=== PATIENT | male | born 1955 | race Caucasian/White ===

== ENCOUNTER 2023-07-01 03:37 | Emergency (ER) | payer MEDICARE, OTHER, SELFPAY ==
[2023-07-01] VITALS (7 sets, daily range): BP systolic 124–194; BP diastolic 60–109; PULSE 56–99; RESP 17–18; TEMP 36.8; O2SAT 95–99; BMI 21.2
--- NOTE | 2023-07-01 03:55 | ED_ITS ---
HPI - Abdominal Pain <Marisol Asif MD - Last Filed: 07/02/23 01:20> General Chief Complaint: Nausea/Vomiting/Diarrhea Stated Complaint: NVD Time Seen by Provider: 07/01/23 03:41 History of Present Illness HPI narrative: 68-year-old male with history of TBI, peripheral neuropathy, CKD stage 3 presents by private vehicle from home for nausea, vomiting, abdominal pain. Patient's SRIDEVI form reports numerous ER visits at various locations for same complaints. Most recently seen 06/17 at [facility] and 06/18 at [facility] for abdominal-related complaints. Related Data Previous Rx's Medication Instructions Recorded promethazine 25 mg tablet 25 mg PO Q6H PRN nausea and 07/01/23 vomiting #30 tabs Allergies Allergy/AdvReac Type Severity Reaction Status Date / Time droperidol AdvReac Severe Cramping Verified 07/01/23 06:53 of the Muscles sertraline [From Zoloft] AdvReac Verified 07/01/23 04:03 Review of Systems <Marisol Asif MD - Last Filed: 07/02/23 01:20> Review of Systems Narrative: see HPI Exam <Marisol Asif MD - Last Filed: 07/02/23 01:20> Narrative Exam Narrative: Const: Awake, alert, appears chronically unwell, older than stated age Cardiac: regular rate, regular rhythm RESP: unlabored, clear bilaterally, no wheezing GI: Soft, generalized tenderness to deep palpation, no rebound, no guarding Skin: Warm, Dry, intact, no rashes Neuro: AO x3, CN II-XII grossly intact, moves all extremities Initial Vital Signs Initial Vital Signs: Vital Signs Temperature 98.3 F 07/01/23 03:45 Pulse Rate 57 L 07/01/23 03:45 Respiratory Rate 17 07/01/23 03:45 Blood Pressure 137/84 07/01/23 03:45 Pulse Oximetry 95 07/01/23 03:45 Oxygen Delivery Method Room Air 07/01/23 03:45 <Marisol Mcnally DO - Last Filed: 07/01/23 11:11> Initial Vital Signs Initial Vital Signs: Vital Signs Temperature 98.3 F 07/01/23 03:45 Pulse Rate 57 L 07/01/23 03:45 Respiratory Rate 17 07/01/23 03:45 Blood Pressure 137/84 07/01/23 03:45 Pulse Oximetry 95 07/01/23 03:45 Oxygen Delivery Method Room Air 07/01/23 03:45 Course <Marisol Asif MD - Last Filed: 07/02/23 01:20> Orders Ordered: Discontinued Medications Diphenhydramine HCl (Diphenhydramine 50 Mg/Ml Vial) 50 mg IV NOW ONE Stop: 07/01/23 06:34 Last Admin: 07/01/23 06:39 Dose: 50 mg Documented By: Droperidol (Droperidol 5 Mg/2 Ml Vial) 2.5 mg IV NOW ONE Stop: 07/01/23 03:55 Last Admin: 07/01/23 04:02 Dose: 2.5 mg Documented By: ESTRELLA Droperidol (Droperidol 5 Mg/2 Ml Vial) 2.5 mg IV NOW ONE Stop: 07/01/23 06:03 Last Admin: 07/01/23 06:07 Dose: 2.5 mg Documented By: ESTRELLA Sodium Chloride (Normal Saline 0.9%) 1,000 mls @ 1,000 mls/hr IV BOLUS ONE Stop: 07/01/23 04:53 Last Infusion: 07/01/23 05:36 Dose: Infused Documented By: Admin: 07/01/23 04:02 Dose: 1,000 mls/hr Documented By: ESTRELLA Acetaminophen (Ofirmev) 1,000 mg in 100 mls @ 400 mls/hr IV NOW ONE Stop: 07/01/23 04:58 Last Infusion: 07/01/23 05:32 Dose: Infused Documented By: Admin: 07/01/23 04:50 Dose: 400 mls/hr Documented By: ESTRELLA Lorazepam (Lorazepam 0.5 Mg Tablet) 1 mg PO NOW ONE Stop: 07/01/23 07:31 Last Admin: 07/01/23 07:37 Dose: 1 mg Documented By: LAINA Vital Signs Vital signs: Vital Signs - 8 hr 07/01/23 03:45 07/01/23 04:31 07/01/23 04:31 Temperature 98.3 F Pulse Rate 57 L 56 L Respiratory Rate 17 Blood Pressure 137/84 140/94 H Pulse Oximetry 95 97 Oxygen Delivery Method Room Air Room Air 07/01/23 05:01 07/01/23 05:01 07/01/23 06:13 Temperature Pulse Rate 68 93 H Respiratory Rate Blood Pressure 194/109 H Pulse Oximetry 98 97 Oxygen Delivery Method Room Air Room Air 07/01/23 06:14 07/01/23 06:14 07/01/23 06:29 Temperature Pulse Rate 99 H 94 H Respiratory Rate Blood Pressure 169/102 H Pulse Oximetry 98 96 Oxygen Delivery Method Room Air 07/01/23 08:34 Temperature Pulse Rate 65 Respiratory Rate 18 Blood Pressure 124/60 Pulse Oximetry 99 Oxygen Delivery Method Room Air <Marisol Mcnally DO - Last Filed: 07/01/23 11:11> Orders Ordered: Discontinued Medications Diphenhydramine HCl (Diphenhydramine 50 Mg/Ml Vial) 50 mg IV NOW ONE Stop: 07/01/23 06:34 Last Admin: 07/01/23 06:39 Dose: 50 mg Documented By: Droperidol (Droperidol 5 Mg/2 Ml Vial) 2.5 mg IV NOW ONE Stop: 07/01/23 03:55 Last Admin: 07/01/23 04:02 Dose: 2.5 mg Documented By: ESTRELLA Droperidol (Droperidol 5 Mg/2 Ml Vial) 2.5 mg IV NOW ONE Stop: 07/01/23 06:03 Last Admin: 07/01/23 06:07 Dose: 2.5 mg Documented By: ESTRELLA Sodium Chloride (Normal Saline 0.9%) 1,000 mls @ 1,000 mls/hr IV BOLUS ONE Stop: 07/01/23 04:53 Last Infusion: 07/01/23 05:36 Dose: Infused Documented By: Admin: 07/01/23 04:02 Dose: 1,000 mls/hr Documented By: ESTRELLA Acetaminophen (Ofirmev) 1,000 mg in 100 mls @ 400 mls/hr IV NOW ONE Stop: 07/01/23 04:58 Last Infusion: 07/01/23 05:32 Dose: Infused Documented By: Admin: 07/01/23 04:50 Dose: 400 mls/hr Documented By: ESTRELLA Lorazepam (Lorazepam 0.5 Mg Tablet) 1 mg PO NOW ONE Stop: 07/01/23 07:31 Last Admin: 07/01/23 07:37 Dose: 1 mg Documented By: LAINA Vital Signs Vital signs: Vital Signs - 8 hr 07/01/23 03:45 07/01/23 04:31 07/01/23 04:31 Temperature 98.3 F Pulse Rate 57 L 56 L Respiratory Rate 17 Blood Pressure 137/84 140/94 H Pulse Oximetry 95 97 Oxygen Delivery Method Room Air Room Air 07/01/23 05:01 07/01/23 05:01 07/01/23 06:13 Temperature Pulse Rate 68 93 H Respiratory Rate Blood Pressure 194/109 H Pulse Oximetry 98 97 Oxygen Delivery Method Room Air Room Air 07/01/23 06:14 07/01/23 06:14 07/01/23 06:29 Temperature Pulse Rate 99 H 94 H Respiratory Rate Blood Pressure 169/102 H Pulse Oximetry 98 96 Oxygen Delivery Method Room Air 07/01/23 08:34 Temperature Pulse Rate 65 Respiratory Rate 18 Blood Pressure 124/60 Pulse Oximetry 99 Oxygen Delivery Method Room Air MDM - Abdominal Pain <Marisol Asif MD - Last Filed: 07/02/23 01:20> Differential Diagnosis Differential diagnosis: Likely abdominal pain, constipation and diverticulitis Lab Data 07/01/23 04:05 07/01/23 04:05 Labs: Lab Results 07/01/23 Range/Units 04:05 WBC 11.8 H (4.5-11.0) X10^3/uL RBC 5.38 (4.5-5.9) X10^6/uL Hgb 17.0 (13.5-17.5) g/dL Hct 50.7 (41-53) % MCV 94.2 (80-100) fL MCH 31.6 (26-34) PG MCHC 33.6 (30-36) % RDW 15.2 H (11.6-14.8) % Plt Count 299 (150-400) X10^3/uL Neut % (Auto) 71.0 (50-75) % Lymph % (Auto) 19.0 L (25-40) % [place] % (Auto) 8.2 (3-14) % Eos % (Auto) 1.3 L (2-4) % Baso % (Auto) 0.5 (0-2) % Neut # (Auto) 8400 H (0047-9926) /uL Lymph # (Auto) 2200 (6902-9383) /uL [place] # (Auto) 1000 H (0-900) /uL Eos # (Auto) 200 (0-450) /uL Baso # (Auto) 100 (0-100) /uL Sodium 139 (137-145) mmol/L Potassium 4.7 (3.4-5.1) mmol/L Chloride 102 (98-107) mmol/L Carbon Dioxide 30 (22-32) mmol/L BUN 24 H (9-20) mg/dL Creatinine 1.81 H (0.66-1.25) mg/dL Estimated GFR 40 L (>60) mL/min BUN/Creatinine Ratio 13.3 (6-22) Glucose 106 (80-110) mg/dL Lactate 1.0 (0.7-2.1) mmol/L Calcium 10.7 H (8.4-10.2) mg/dL Magnesium 2.4 H (1.6-2.3) mg/dL Total Bilirubin 0.9 (0.2-1.3) mg/dL AST 20 (17-59) IU/L ALT 17 (<50) IU/L Alkaline Phosphatase 89 (38-126) U/L Ammonia < 9 L (9-30) umol/L Total Protein 8.5 H (6.3-8.2) g/dL Albumin 5.2 H (3.5-5.0) g/dL Globulin 3.3 (1.7-4.1) g/dL Albumin/Globulin Ratio 1.6 (1.0-2.8) Lipase 205 (23-300) U/L ECG Data Interpretation: Sinus bradycardia at 58 beats per minute. Normal axis, normal ID, no STEMI MDM Narrative Medical decision making narrative: Chronically unwell appearing patient presents for the 3rd time in 2 weeks for nausea, vomiting, abdominal pain. Abdomen is soft, there is generalized tenderness to deep palpation in all quadrants without specific focality. We will obtain records from outside hospitals and laboratory work is ordered. Laboratory work is reviewed, patient does have elevated creatinine but has been told he has chronic kidney disease in the past. Records from [facility] and [facility] reviewed, patient underwent CT scanning at each facility, each was negative for acute findings. Patient also had a right upper quadrant ultrasound and a HIDA scan at [facility] that were normal. Patient states that these with the same symptoms that he had when he went to the other 2 facilities. His laboratory work today is actually improved from his previous visits, I do not believe there is any utility in repeating imaging at this time. Nausea and pain improved with droperidol. Patient able to tolerate p.o., states his pain is improved, but he does have restless legs currently. Denies history of restless legs. This is likely a reaction to the droperidol. Benadryl IV ordered. Discussed findings of labs were as well as possible side effect of droperidol with patient and his at bedside. They are comfortable going home. Recommended follow up with GI doctor as well as PCP. Phenergan sent to pharmacy since patient was not get much benefit from the Zofran. 68-year-old male who was seen by Dr. Asif. Labs and imaging were reviewed. Patient was seen and evaluated by myself. Was already discharged but had sounds like reaction to the droperidol he would received earlier had received Benadryl which was somewhat helpful but still pretty uncomfortable. Was given additional dose of oral Ativan. Reviewed findings with patient and family they are aware of them. They know patient's nausea vomiting is much better her. He has had some improvement in symptoms but still present discussed would need some time. They are comfortable returning home discussed return precautions. <Marisol Mcnally, DO - Last Filed: 07/01/23 11:11> Lab Data Labs: Lab Results 07/01/23 Range/Units 04:05 WBC 11.8 H (4.5-11.0) X10^3/uL RBC 5.38 (4.5-5.9) X10^6/uL Hgb 17.0 (13.5-17.5) g/dL Hct 50.7 (41-53) % MCV 94.2 (80-100) fL MCH 31.6 (26-34) PG MCHC 33.6 (30-36) % RDW 15.2 H (11.6-14.8) % Plt Count 299 (150-400) X10^3/uL Neut % (Auto) 71.0 (50-75) % Lymph % (Auto) 19.0 L (25-40) % [place] % (Auto) 8.2 (3-14) % Eos % (Auto) 1.3 L (2-4) % Baso % (Auto) 0.5 (0-2) % Neut # (Auto) 8400 H (8940-8952) /uL Lymph # (Auto) 2200 (2205-8460) /uL [place] # (Auto) 1000 H (0-900) /uL Eos # (Auto) 200 (0-450) /uL Baso # (Auto) 100 (0-100) /uL Sodium 139 (137-145) mmol/L Potassium 4.7 (3.4-5.1) mmol/L Chloride 102 (98-107) mmol/L Carbon Dioxide 30 (22-32) mmol/L BUN 24 H (9-20) mg/dL Creatinine 1.81 H (0.66-1.25) mg/dL Estimated GFR 40 L (>60) mL/min BUN/Creatinine Ratio 13.3 (6-22) Glucose 106 (80-110) mg/dL Lactate 1.0 (0.7-2.1) mmol/L Calcium 10.7 H (8.4-10.2) mg/dL Magnesium 2.4 H (1.6-2.3) mg/dL Total Bilirubin 0.9 (0.2-1.3) mg/dL AST 20 (17-59) IU/L ALT 17 (<50) IU/L Alkaline Phosphatase 89 (38-126) U/L Ammonia < 9 L (9-30) umol/L Total Protein 8.5 H (6.3-8.2) g/dL Albumin 5.2 H (3.5-5.0) g/dL Globulin 3.3 (1.7-4.1) g/dL Albumin/Globulin Ratio 1.6 (1.0-2.8) Lipase 205 (23-300) U/L MDM Narrative Medical decision making narrative: 68-year-old male who was seen by Dr. Asif. Labs and imaging were reviewed. Patient was seen and evaluated by myself. Was already discharged but had sounds like reaction to the droperidol he would received earlier had received Benadryl which was somewhat helpful but still pretty uncomfortable. Was given additional dose of oral Ativan. Reviewed findings with patient and family they are aware of them. They know patient's nausea vomiting is much better her. He has had some improvement in symptoms but still present discussed would need some time. They are comfortable returning home discussed return precautions. Discharge Plan Departure Patient Disposition: Home Clinical Impression: Nausea, Vomiting, and Diarrhea Instructions: DI for Vomiting -- Adult Activity Restrictions/Additional Instructions: Your laboratory work was unchanged from previous lab work from [facility] and [facility]. I do not know the cause of your abdominal pain or your vomiting. Phenergan has been sent to the pharmacy, this may help with your nausea. Please follow up with a GI doctor if you continue to experience symptoms. Prescriptions: New promethazine 25 mg tablet 25 mg PO Q6H PRN (Reason: nausea and vomiting) Qty: 30 0RF Stand Alone Forms: Patient Portal/API
[2023-07-01] MEDS: SODIUM CHLORIDE 0.9% 1,000 ML 1000 ML IV (04:02)
[2023-07-01] MEDS: DROPERIDOL 5 MG/2 ML VIAL 2.5 MG IV ×2 (04:02→06:07)
[2023-07-01 04:14] LABS: Add Manual Diff / Slide Review NO; Basophils Absolute Auto 100 /uL (0-100); Basophils Percent Auto 0.5 % (0-2); Eosinophils Absolute Auto 200 /uL (0-450); Eosinophils Percent Auto 1.3 % (2-4); Hematocrit 50.7 % (41-53); Lymphocytes Absolute Auto 2200 /uL (1100-4500); Mean Corpuscular HGB Conc 33.6 % (30-36); Mean Corpuscular Hemoglobin 31.6 PG (26-34); Mean Corpuscular Volume 94.2 fL (80-100); Monocytes Absolute Auto 1000 /uL (0-900); Monocytes Percent Auto 8.2 % (3-14); Neutrophils Absolute Auto 8400 /uL (1500-7000); Platelet Count 299 X10^3/uL (150-400); Red Blood Cell Count 5.38 X10^6/uL (4.5-5.9); Red Cell Distribution Width 15.2 % (11.6-14.8); White Blood Cell Count 11.8 X10^3/uL (4.5-11.0)
[2023-07-01 04:28] LABS: Ammonia (NH3) < 9 umol/L (9-30)
[2023-07-01 04:30] LABS: Alanine Aminotransferase 17 IU/L (<50); Albumin 5.2 g/dL (3.5-5.0); Albumin Globulin Ratio 1.6 (1.0-2.8); Alkaline Phosphatase 89 U/L (38-126); Aspartate Aminotransferase 20 IU/L (17-59); BUN Creatinine Ratio 13.3 (6-22); Bilirubin Total 0.9 mg/dL (0.2-1.3); Blood Urea Nitrogen 24 mg/dL (9-20); Calcium 10.7 mg/dL (8.4-10.2); Carbon Dioxide 30 mmol/L (22-32); Chloride 102 mmol/L (98-107); Estimated Glomerular Filt Rate 40 mL/min (>60); Globulin 3.3 g/dL (1.7-4.1); Glucose 106 mg/dL (80-110); HEMOLYSIS < 15 (0-50); Lipase 205 U/L (23-300); Magnesium 2.4 mg/dL (1.6-2.3); Potassium 4.7 mmol/L (3.4-5.1); Sodium 139 mmol/L (137-145); Total Protein 8.5 g/dL (6.3-8.2)
--- NOTE | 2023-07-01 04:30 | PC.NURSE ---
c/o n/v pt has been seen at other outside facilities for the same but continues to have h/v
--- NOTE | 2023-07-01 04:38 | DI.RAD.S_ITS ---
PROCEDURE: XR KUB INDICATIONS: N/V/VOMITED GREEN TECHNIQUE: One view of the abdomen acquired. COMPARISON: None. FINDINGS: Surgical changes and devices: None. Bowel: Bowel gas pattern is nonobstructive. No evidence for pneumatosis or pneumoperitoneum. Soft tissues: No suspicious abdominal calcifications. Punctate radiopaque densities noted in the abdomen and pelvis which may represent retained oral contrast. Visualized solid organ contours appear normal in size. Bones: No suspicious bony lesions. IMPRESSION: Nonobstructive bowel gas pattern. No evidence for pneumoperitoneum. No significant discrepancy with the shift superintendent caustic cresylate radiology preliminary report. Dictated by: Rajeev Avalos M.D. on 07/01/2023 at 8:31 Approved by: Rajeev Avalos M.D. on 07/01/2023 at 8:37
[2023-07-01] MEDS: ACETAMINOPHEN IV 1,000 MG/100 ML VIAL 400 MG IV (04:50)
--- NOTE | 2023-07-01 05:50 | PC.NURSE ---
pt was able to tolerate kaz sree without any n/v noted
[2023-07-01] MEDS: diphenhydrAMINE 50 MG/ML VIAL IV (06:39)
[2023-07-01] MEDS: LORazepam 0.5 MG TABLET 1 MG PO (07:37)
--- NOTE | 2023-07-01 08:32 | PC.NURSE ---
Pt had adverse reaction to droperidol. Given Benadryl and Ativan for symptoms of restlessness and itching. Discharged with instructions to return for worsening symptoms.
== END 2023-07-01 08:38 | disposition home or self-care (01) ==
PROVIDERS: Emergency Provider Emergency Medicine
DX: R11.2 Nausea with vomiting, unspecified (principal); R19.7 Diarrhea, unspecified; R07.9 Chest pain, unspecified
CPT/HCPCS: 36415; 74018; 80053; 82140; 83605; 83690; 83735; 85025; 93005; 93010; 96365; 96375; 96376; 99284; J0136; J1200; J1790

== ENCOUNTER 2023-07-15 16:38 | Emergency (ER) | payer MEDICARE, OTHER, SELFPAY ==
[2023-07-15 16:59] VITALS: BP 172/93; PULSE 63; RESP 18; TEMP 36.6; O2SAT 97; BMI 21.2
--- NOTE | 2023-07-15 17:23 | PC.NURSE ---
This RN attempted two IV and got flash with minimal blood return upon flushing line would infiltrate.
[2023-07-15 18:19] LABS: Add Manual Diff / Slide Review NO; Basophils Absolute Auto 100 /uL (0-100); Basophils Percent Auto 0.7 % (0-2); Eosinophils Absolute Auto 100 /uL (0-450); Eosinophils Percent Auto 0.6 % (2-4); Hematocrit 45.6 % (41-53); Hemoglobin 15.4 g/dL (13.5-17.5); Lymphocytes Absolute Auto 2000 /uL (1100-4500); Lymphocytes Percent Auto 14.2 % (25-40); Mean Corpuscular HGB Conc 33.8 % (30-36); Mean Corpuscular Volume 94.7 fL (80-100); Monocytes Absolute Auto 1000 /uL (0-900); Monocytes Percent Auto 7.6 % (3-14); Neutrophils Absolute Auto 10600 /uL (1500-7000); Neutrophils Percent Auto 76.9 % (50-75); Platelet Count 373 X10^3/uL (150-400); Red Blood Cell Count 4.82 X10^6/uL (4.5-5.9); Red Cell Distribution Width 14.7 % (11.6-14.8); White Blood Cell Count 13.8 X10^3/uL (4.5-11.0)
[2023-07-15 18:21] LABS: Alanine Aminotransferase 19 IU/L (<50); Albumin 4.8 g/dL (3.5-5.0); Albumin Globulin Ratio 1.6 (1.0-2.8); Alkaline Phosphatase 70 U/L (38-126); Aspartate Aminotransferase 26 IU/L (17-59); BUN Creatinine Ratio 14.2 (6-22); Bilirubin Total 0.6 mg/dL (0.2-1.3); Blood Urea Nitrogen 24 mg/dL (9-20); Calcium 10.3 mg/dL (8.4-10.2); Carbon Dioxide 25 mmol/L (22-32); Chloride 106 mmol/L (98-107); Estimated Glomerular Filt Rate 44 mL/min (>60); Glucose 117 mg/dL (80-110); HEMOLYSIS < 15 (0-50); Lipase 109 U/L (23-300); Potassium 4.9 mmol/L (3.4-5.1); Sodium 138 mmol/L (137-145); Total Protein 7.8 g/dL (6.3-8.2)
--- NOTE | 2023-07-15 18:52 | ED_ITS ---
HPI - Abdominal Pain General Chief Complaint: Abdominal Pain Stated Complaint: vomitting Time Seen by Provider: 07/15/23 18:03 Source: patient Mode of arrival: Ambulatory History of Present Illness HPI narrative: 68-year-old male with history of TBI, peripheral neuropathy, CKD stage 3, marijuana use presents by private vehicle from home for nausea, vomiting, upper abdominal pain. Patient seen numerous times at different ERs for this complaint with unremarkable workups. He has not followed up with a GI doctor since his last visit to our ER on 06/30. Patient states that his oral medications are no longer helpful and he needs IV medications and fluids as he is dehydrated. Related Data Previous Rx's Medication Instructions Recorded promethazine 25 mg tablet 25 mg PO Q6H PRN nausea and 07/01/23 vomiting #30 tabs metoclopramide HCl 10 mg tablet 10 mg PO Q6H PRN nausea and 07/15/23 (Reglan) vomiting #30 tabs metoclopramide HCl 10 mg tablet 10 mg PO Q6H PRN nausea and 07/15/23 (Reglan) vomiting #30 tabs Allergies Allergy/AdvReac Type Severity Reaction Status Date / Time droperidol AdvReac Severe Cramping Verified 07/01/23 06:53 of the Muscles sertraline [From Zoloft] AdvReac Verified 07/01/23 04:03 Review of Systems Review of Systems Narrative: See HPI Patient History Social History Smoking Status: Never smoker Smoking Status: Never smoker alcohol intake frequency: 0-2 drinks per day Substance Use Type: marijuana Exam Initial Vital Signs Initial Vital Signs: Vital Signs Temperature 97.8 F 07/15/23 16:59 Pulse Rate 63 07/15/23 16:59 Respiratory Rate 18 07/15/23 16:59 Blood Pressure 172/93 H 07/15/23 16:59 Pulse Oximetry 97 07/15/23 16:59 Oxygen Delivery Method Room Air 07/15/23 16:59 Const: Awake, alert, appears chronically unwell, older than stated age Cardiac: regular rate, regular rhythm RESP: unlabored, clear bilaterally, no wheezing GI: Soft, generalized tenderness to deep palpation without rebound or guarding Skin: Warm, Dry, intact, no rashes Neuro: AO x3, CN II-XII grossly intact, moves all extremities Course Orders Ordered: ED Orders 07/15/23 17:31 Complete Blood Count AUTO DIFF Stat Comprehensive Metabolic Panel Stat Lipase Stat 07/15/23 17:41 EKG-12 Lead Stat 07/15/23 18:52 US abdomen limited Stat Discontinued Medications Diphenhydramine HCl (Diphenhydramine 50 Mg/Ml Vial) 50 mg IV NOW ONE Stop: 07/15/23 19:45 Last Admin: 07/15/23 20:35 Dose: 50 mg Documented By: SOHAN Sodium Chloride (Normal Saline 0.9%) 1,000 mls @ 1,000 mls/hr IV BOLUS ONE Stop: 07/15/23 22:40 Last Infusion: 07/15/23 22:58 Dose: Infused Documented By: Admin: 07/15/23 21:47 Dose: 1,000 mls/hr Documented By: JASMYN Metoclopramide HCl (Metoclopramide 10 Mg/2 Ml Inj) 10 mg IV NOW ONE Stop: 07/15/23 19:16 Last Admin: 07/15/23 20:35 Dose: 10 mg Documented By: SOHAN Ondansetron HCl (Ondansetron 4 Mg Odt) 4 mg PO NOW PRN PRN Reason: Nausea And Vomiting Ondansetron HCl (Ondansetron 4 Mg/2 Ml Inj) 4 mg IV NOW PRN PRN Reason: Nausea And Vomiting Sodium Chloride (Sodium Chloride 0.9% Flush) 10 ml IV BID NITHIN Sodium Chloride (Sodium Chloride 0.9% Flush) 10 ml IV PRN PRN PRN Reason: Flush Vital Signs Vital signs: Vital Signs - 8 hr 07/15/23 23:06 Temperature 98.4 F Pulse Rate 71 Respiratory Rate 16 Blood Pressure 134/84 Pulse Oximetry 99 Oxygen Delivery Method Room Air MDM - Abdominal Pain Differential Diagnosis Differential diagnosis: Likely abdominal pain, acute appendicitis and calculus of kidney Lab Data 07/15/23 17:31 07/15/23 17:31 Labs: Lab Results 07/15/23 Range/Units 17:31 WBC 13.8 H (4.5-11.0) X10^3/uL RBC 4.82 (4.5-5.9) X10^6/uL Hgb 15.4 (13.5-17.5) g/dL Hct 45.6 (41-53) % MCV 94.7 (80-100) fL MCH 32.0 (26-34) PG MCHC 33.8 (30-36) % RDW 14.7 (11.6-14.8) % Plt Count 373 (150-400) X10^3/uL Neut % (Auto) 76.9 H (50-75) % Lymph % (Auto) 14.2 L (25-40) % [place] % (Auto) 7.6 (3-14) % Eos % (Auto) 0.6 L (2-4) % Baso % (Auto) 0.7 (0-2) % Neut # (Auto) 43442 H (9316-2253) /uL Lymph # (Auto) 2000 (8347-0103) /uL [place] # (Auto) 1000 H (0-900) /uL Eos # (Auto) 100 (0-450) /uL Baso # (Auto) 100 (0-100) /uL Sodium 138 (137-145) mmol/L Potassium 4.9 (3.4-5.1) mmol/L Chloride 106 (98-107) mmol/L Carbon Dioxide 25 (22-32) mmol/L BUN 24 H (9-20) mg/dL Creatinine 1.69 H (0.66-1.25) mg/dL Estimated GFR 44 L (>60) mL/min BUN/Creatinine Ratio 14.2 (6-22) Glucose 117 H (80-110) mg/dL Calcium 10.3 H (8.4-10.2) mg/dL Total Bilirubin 0.6 (0.2-1.3) mg/dL AST 26 (17-59) IU/L ALT 19 (<50) IU/L Alkaline Phosphatase 70 (38-126) U/L Total Protein 7.8 (6.3-8.2) g/dL Albumin 4.8 (3.5-5.0) g/dL Globulin 3.0 (1.7-4.1) g/dL Albumin/Globulin Ratio 1.6 (1.0-2.8) Lipase 109 (23-300) U/L [facility] Narrative Medical decision making narrative: Patient presenting with similar abdominal pain as previous. Multiple negative workups including abdominal CTs and HIDA scan at outside hospitals. Patient states this is the same as his chronic pain, however his oral Zofran is not working and he was requesting IV antiemetics. I previously discharge the patient on Phenergan, but it was unclear if he took these pills and if they are working. He states that he was given a medication that ?comes in 5s and 10s?, which may be Reglan, however when I list the names of nausea medications neither he nor his can identify which medication he was taking previously. It was possible that patient's vomiting and abdominal pain are related to THC use, however he had an adverse reaction to droperidol (akesthesia), so we will not give this medication this time. Laboratory work shows WBC count 13.8, hemoglobin 15.4, platelets 373. Leukocytosis likely secondary to vomiting. Sodium 138, potassium 4.9, creatinine 1.69 (previous 1.81), calcium 10.3, normal liver enzymes. Patient given Benadryl and Reglan as well as IV fluids. Subsequently able to tolerate p.o.. I again advised patient and his that it was important that he follows up with GI to get to the bottom of his chronic abdominal pain and nausea Discharge Plan Departure Patient Disposition: Home Clinical Impression: Nausea, Vomiting, and Diarrhea Instructions: DI for Abdominal Pain-Adult Activity Restrictions/Additional Instructions: Your laboratory work today is reassuring, however with your ongoing abdominal pain I highly recommend following up with a doweling machine operator. Prescriptions: New metoclopramide HCl [Reglan] 10 mg tablet 10 mg PO Q6H PRN (Reason: nausea and vomiting) Qty: 30 0RF metoclopramide HCl [Reglan] 10 mg tablet 10 mg PO Q6H PRN (Reason: nausea and vomiting) Qty: 30 0RF No Action promethazine 25 mg tablet 25 mg PO Q6H PRN (Reason: nausea and vomiting) Qty: 30 0RF Referrals: Zeus Arora MD [Non-Staff] - Stand Alone Forms: Patient Portal/API
--- NOTE | 2023-07-15 18:52 | DI.US.S_ITS ---
PROCEDURE: US ABDOMEN LIMITED INDICATIONS: upper abdominal pain TECHNIQUE: Real-time scanning was performed of the abdominal and retroperitoneal organs, with image documentation. COMPARISON: None. FINDINGS: Liver: Liver is normal in size and homogeneous in echotexture. Gallbladder: Gallbladder sludge versus stones. No wall thickening. No pericholecystic edema. Negative sonographic Sahu's sign. Biliary ducts: Intrahepatic bile ducts are non-dilated. Extrahepatic bile duct caliber measures 4 mm. Normal is 6-7 mm or less in diameter, or 10 mm or less post-cholecystectomy. Pancreas: Visualized portions of the pancreas are sonographically normal. Miscellaneous: No free abdominal fluid. IMPRESSION: Gallbladder sludge versus small stones. No wall thickening or pericholecystic edema to suggest acute cholecystitis. Dictated by: Primo Gruber M.D. on 07/15/2023 at 19:45 Approved by: Primo Gruber M.D. on 07/15/2023 at 19:47
[2023-07-15] MEDS: diphenhydrAMINE 50 MG/ML VIAL IV (20:35)
[2023-07-15] MEDS: METOCLOPRAMIDE 10 MG/2 ML INJ IV (20:35)
[2023-07-15] MEDS: SODIUM CHLORIDE 0.9% 1,000 ML 1000 ML IV (21:47)
[2023-07-15 23:06] VITALS: BP 134/84; PULSE 71; RESP 16; TEMP 36.9; O2SAT 99
== END 2023-07-15 23:07 | disposition home or self-care (01) ==
PROVIDERS: Emergency Medicine; Emergency Provider Emergency Medicine
DX: R11.2 Nausea with vomiting, unspecified (principal); R19.7 Diarrhea, unspecified; R10.9 Unspecified abdominal pain; G89.29 Other chronic pain
CPT/HCPCS: 36415; 76705; 80053; 83690; 85025; 93005; 96374; 96375; 99284; J1200; J2765